=== PATIENT | male | born 1950 | race Caucasian/White ===

== ENCOUNTER → 2021-04-14 | Outpatient (CLI) | payer MEDICARE | LOC: KOH-I 12:32 | DX: E07.9 Disorder of thyroid, unspecified (principal) | CPT/HCPCS: 76536 ==

== ENCOUNTER → 2021-07-07 | Outpatient (CLI) | payer MEDICARE | LOC: KOH-I 08:35 | DX: R05.9 Cough, unspecified (principal) | CPT/HCPCS: 71046 ==